=== PATIENT | female | born 1980 | race Two or more races ===

== ENCOUNTER 2016-12-04 19:49 | Emergency (ER) | payer SELFPAY ==
[~2016-12-04 19:49] MED LIST: AUGMENTIN 875-1 EAC2 PO; COLACE100 M1 PO; GLYBURIDE5 M1 PO; HYDROXYZINE HCL10 M1 PO; IBUPROFEN800 M1 PO; IBUPROFEN800 MG PO; MOTRIN800 MG PO; NORCO 5-325 TA1 EACH PO; NORCO 5/325 TAB1 TAB PO; NORCO 5/3251 TAB PO; PERCOCET 5-3251 EACH PO; PRENA1 CHEW TA1.4 M1 PO; [UNRECOGNIZED DRUG - OTHER]
== END 2016-12-04 20:59 ==
LOC: EDMED 19:49
DX: S93.401A Sprain of unspecified ligament of right ankle, initial encounter (principal); X50.1XXA Overexertion from prolonged static or awkward postures, initial encounter